=== PATIENT | female | born 1995 | race Two or more races ===

== ENCOUNTER 2025-06-12 07:35 | Outpatient (CLI) | payer BC ==
[2025-06-12 08:00] LABS: Hematocrit 37.8 % (36.0-46.0); Hemoglobin 12.9 g/dL (12.2-16.2); Mean Corpuscular Hemoglobin 32.0 pg (28.0-32.0); Mean Corpuscular Volume 93.5 fL (80.0-100.0); Nucleated Red Blood Cells % 0.1 %
[2025-06-12 08:03] LABS: Urine Protein, UAD 1+ (Negative)
[2025-06-12 08:22] LABS: Alkaline Phosphatase 56 U/L (46-116); Anion Gap 11 (5-15); BUN/Creatinine Ratio 21.6 (10.0-20.0); Blood Urea Nitrogen 19 mg/dL (9-23); Calcium 9.7 mg/dL (8.7-10.4); Carbon Dioxide 26 mmol/L (20-31); Glucose 94 mg/dL (74-106); Potassium 4.3 mmol/L (3.5-5.1); Sodium 144 mmol/L (136-145); Triglycerides 51 mg/dL (< 150)
[2025-06-12 08:23] LABS: Albumin 4.5 g/dL (3.2-4.8); Total Protein 7.2 g/dL (5.7-8.2)
[2025-06-12 08:24] LABS: Bilirubin, Total 0.6 mg/dL (0.2-1.0); Cholesterol 126 mg/dL (< 200); HDL Cholesterol 55 mg/dL (40-59)
[2025-06-12 08:44] LABS: Alanine Aminotransferase 9 U/L (7-40); Chloride 107 mmol/L (98-107)
== END 2025-06-12 17:00 | disposition home or self-care (01) ==
LOC: LAB 07:35
PROVIDERS: ATTEND Nurse Practitioner Family
DX: I10 Essential (primary) hypertension (principal); Z00.01 Encounter for general adult medical examination with abnormal findings
CPT/HCPCS: 36415; 80053; 80061; 81001; 84443; 85025